=== PATIENT | male | born 1970 | race Two or more races ===

== ENCOUNTER 2023-06-25 08:30 | Inpatient (IN) | payer OTHER ==
[~2023-06-25] VITALS: Ht 177.8 cm; Wt 83.9 kg
[2023-06-25] MEDS ORDERED: ATORVASTATIN CA80 MG PO (10:34)
[2023-06-25] MEDS ORDERED: ZESTRIL20 MG PO (10:35)
[2023-06-25 11:17] LABS: URINE APPEARANCE Clear; URINE BILIRRUBIN Negative (NEGATIVE); URINE BLOOD Negative; URINE COLOR Yellow; URINE GLUCOSE Negative (NEGATIVE); URINE LEUKOCYTE Small; URINE NITRATE Negative; URINE PROTEIN Negative (NEGATIVE); URINE UROBILINOGEN 0.2 E.U./dl
[2023-06-25 11:21] LABS: URINE BACTERIA 21.4 uL (0.0-1933); URINE RBC 15.2 uL (0.0-20.8); URINE WBC 115.9 uL (0.0-23.2)
[2023-07-01 19:18] LABS: MEAN CELL VOLUME 93.9 fL (80.0-100.00); MEAN CORPUSCULAR HGB CONC 33.4 g/dl (32.0-36.0); RED BLOOD COUNT 2.25 M/uL (4.00-6.00); RED CELL DISTRIBUTION WIDTH 13.9 % (11.5-14.5)
[2023-07-01 19:20] LABS: MEAN CORPUSCULAR HEMOGLOBIN 31.5 pg (27.00-32.0)
[2023-07-01 19:23] LABS: HEMATOCRIT 21.2 % (39.0-48.0); HEMOGLOBIN 7.1 g/dL (13-16.00); PLATELET COUNT 104 K/uL (150-450)
[2023-07-01 21:05] LABS: MEAN CELL VOLUME 93.2 fL (80.0-100.00); MEAN CORPUSCULAR HEMOGLOBIN 31.7 pg (27.00-32.0); PLATELET COUNT 137 K/uL (150-450); RED CELL DISTRIBUTION WIDTH 13.8 % (11.5-14.5)
[2023-07-01 21:06] LABS: HEMOGLOBIN 9.2 g/dL (13-16.00)
[2023-07-02 07:07] LABS: HEMATOCRIT 25.6 % (39.0-48.0); MEAN CELL VOLUME 93.3 fL (80.0-100.00); MEAN CORPUSCULAR HGB CONC 34.6 g/dl (32.0-36.0); PLATELET COUNT 132 K/uL (150-450); RED BLOOD COUNT 2.75 M/uL (4.00-6.00); RED CELL DISTRIBUTION WIDTH 13.7 % (11.5-14.5)
[2023-07-02 07:16] LABS: MEAN CORPUSCULAR HEMOGLOBIN 32.3 pg (27.00-32.0)
[2023-07-02 07:17] LABS: HEMOGLOBIN 8.9 g/dL (13-16.00)
[2023-07-02 07:22] LABS: CALCIUM 7.6 mg/dL (8.5-10.1); CREATININE SERUM 1.04 mg/dL (0.70-1.30); GFR 75.29; POTASSIUM 4.54 mEq/L (3.5-5.1)
[2023-07-02 18:15] LABS: MEAN CELL VOLUME 93.6 fL (80.0-100.00); MEAN CORPUSCULAR HGB CONC 33.8 g/dl (32.0-36.0); RED BLOOD COUNT 2.51 M/uL (4.00-6.00); RED CELL DISTRIBUTION WIDTH 13.6 % (11.5-14.5)
[2023-07-02 18:16] LABS: MEAN CORPUSCULAR HEMOGLOBIN 31.4 pg (27.00-32.0)
[2023-07-02 18:18] LABS: HEMATOCRIT 23.4 % (39.0-48.0); HEMOGLOBIN 7.9 g/dL (13-16.00)
[2023-07-02 18:19] LABS: PLATELET COUNT 120 K/uL (150-450)
[2023-07-03 08:52] LABS: HEMATOCRIT 33.4 % (39.0-48.0); HEMOGLOBIN 11.6 g/dL (13-16.00); MEAN CELL VOLUME 90.1 fL (80.0-100.00); MEAN CORPUSCULAR HEMOGLOBIN 31.3 pg (27.00-32.0); MEAN CORPUSCULAR HGB CONC 34.7 g/dl (32.0-36.0); RED CELL DISTRIBUTION WIDTH 14.6 % (11.5-14.5)
[2023-07-03 08:53] LABS: PLATELET COUNT 128 K/uL (150-450)
== END 2023-07-03 11:45 | disposition home or self-care (01) | DRG 694 ==
LOC: O/R 07-01 10:49 → SURG 07-01 20:56
PROVIDERS: ADMIT Urology; ATTEND Urology
PROC: 0TJB8ZZ Inspection of Bladder, Via Natural or Artificial Opening Endoscopic (ICD-10-PCS; 2023-07-01)
PROC: BT1DZZZ Fluoroscopy of Right Kidney, Ureter and Bladder (ICD-10-PCS; 2023-07-01)
PROC: 0TF38ZZ Fragmentation in Right Kidney Pelvis, Via Natural or Artificial Opening Endoscopic (ICD-10-PCS; 2023-07-01)
PROC: 0TC38ZZ Extirpation of Matter from Right Kidney Pelvis, Via Natural or Artificial Opening Endoscopic (ICD-10-PCS; principal; 2023-07-01 07:00)
DX: N20.0 Calculus of kidney (principal)

== ENCOUNTER 2024-02-19 08:26 | Outpatient (CLI) | payer OTHER ==
[~2024-02-19 08:26] MED LIST: ATORVASTATIN CA80 MG PO; ZESTRIL20 MG PO
== END 2024-02-19 08:29 | disposition home or self-care (01) ==
LOC: RAD 08:26
PROVIDERS: ATTEND Urology
DX: N20.0 Calculus of kidney (principal)

== ENCOUNTER 2025-03-27 08:26 | Outpatient (CLI) | payer OTHER | END 2025-03-27 08:31 | disposition home or self-care (01) | LOC: RAD 08:26 | PROVIDERS: ATTEND Urology | DX: K20.0 Eosinophilic esophagitis (principal) ==